=== PATIENT | male | born 1975 | race Caucasian/White ===

== ENCOUNTER 2019-01-11 07:51 | Day surgery (SDC) | payer OTHER ==
[~2019-01-11] VITALS: Ht 180.3 cm; Wt 121.6 kg
[~2019-01-11 07:51] MED LIST: CRUTCH2 USE; HYDACE5 PO; HYDACE7.5L PO; Multivitamin1 EAC1; Omeprazole20 M1 PO
--- NOTE | 2019-01-11 09:48 | NUR ---
01/11/19 0948 [place] Jack DISCHARGE INSTRUCTIONS REVIEWED WITH PT AND MOTHER. PT TOLERATING PO FLUIDS WELL. VSS. PT STRONGLY ENCOURAGED TO BE HOUSE REST TODAY HE WAS DISCUSSING WORKING ON HIS TRACTER WHEN HE GETS HOME.
== END 2019-01-11 09:40 | disposition home or self-care (01) ==
LOC: ORSCSDS 07:51
PROVIDERS: Internal Medicine Gastroenterology
PROC: 0DBK8ZX Excision of Ascending Colon, Via Natural or Artificial Opening Endoscopic, Diagnostic (ICD-10-PCS; principal; 2019-01-11 09:00)
DX: Z12.11 Encounter for screening for malignant neoplasm of colon (principal); Z86.010 Personal history of colon polyps; D12.2 Benign neoplasm of ascending colon; F41.9 Anxiety disorder, unspecified; I10 Essential (primary) hypertension; E78.00 Pure hypercholesterolemia, unspecified; Z79.899 Other long term (current) drug therapy
CPT/HCPCS: 88305; J2704; J7120

== ENCOUNTER 2022-11-18 07:34 | Day surgery (SDC) | payer OTHER ==
[~2022-11-18] VITALS: Ht 180.3 cm; Wt 123.4 kg
[~2022-11-18 07:34] MED LIST changes: +LOSA50; +METO25ER; +Prinivil10 MG
[2022-11-18 09:31] VITALS: BP 132/96
== END 2022-11-18 09:34 | disposition home or self-care (01) ==
LOC: ORSCSDS 07:34
PROVIDERS: Internal Medicine Gastroenterology
PROC: 0DBL8ZX Excision of Transverse Colon, Via Natural or Artificial Opening Endoscopic, Diagnostic (ICD-10-PCS; principal; 2022-11-18 08:45)
DX: Z12.11 Encounter for screening for malignant neoplasm of colon (principal); K63.5 Polyp of colon; K57.30 Diverticulosis of large intestine without perforation or abscess without bleeding; K64.8 Other hemorrhoids; Z83.71 Family history of colonic polyps
CPT/HCPCS: 88305; J2704; J7120